=== PATIENT | female | born 1985 ===

== ENCOUNTER 2017-12-11 12:59 | Emergency (ER) | payer BC, MEDICAID ==
[2017-12-11 13:11] VITALS: TEMP 98.7
--- NOTE | 2017-12-11 14:28 | ED PDOC ---
HPI: Chest Pain Time Seen by Provider: 12/11/17 14:27 Chief Complaint (Nursing): Palpitations Chief Complaint (Provider): PALPITATIONS History Per: Patient (32 Y/O FEMALE HERE WITH PALPITATIONS INTERMITTENT TODAY LASTING SHORT WHILE. DENIES ANY CHEST PAIN OR SOB WITH SYMPTOMS. IS NOT ON OCP. DOES NOT SMOKE. NO PRIOR MEDICAL HX. ) Against Medical Advice - AMA Patient Left Against Medical Advice: The patient declines admission to the hospital and wishes to leave the Emergency Department. This action is against my medical advice. This decision was made with informed refusal. The patient was told that admission to the hospital is necessary. Explanation of the reasons why were discussed. The risks of leaving were explained to the patient and include, but are not limited to, worsening of known or currently unknown conditions, permanent disability and from undiagnosed or untreated conditions. The patient has the capacity to make this informed decision and understands my explanation of the current medical problem and risks of leaving. The patient voluntarily accepts these risks and signed an AMA form documenting our conversation. The patient was given the opportunity to ask questions and reconsider. The patient was encouraged to return to the Emergency Department at any time for further care. Past Medical History Reviewed: Historical Data, Nursing Documentation, Vital Signs Vital Signs: Last Vital Signs Temp 98.7 F 12/11/17 13:09 Pulse 92 H 12/11/17 13:09 Resp 16 12/11/17 13:09 BP 130/85 12/11/17 13:09 Pulse Ox 100 12/11/17 14:28 - Medical History PMH: Anxiety - Surgical History Surgical History: Appendectomy, Tonsillectomy, - Family History Family History: States: Diabetes (Mother and father) - Allergies Allergies/Adverse Reactions: Allergies Allergy/AdvReac Type Severity Reaction Status Date / Time No Known Allergies Allergy Verified 12/11/17 13:09 Review of Systems ROS Statement: Except As Marked, All Systems Reviewed And Found Negative Cardiovascular: Positive for: Palpitations Physical Exam - Reviewed Nursing Documentation Reviewed: Yes Vital Signs Reviewed: Yes - Physical Exam Appears: Positive for: Well, Non-toxic, No Acute Distress Head Exam: Positive for: ATRAUMATIC, NORMAL INSPECTION, NORMOCEPHALIC Skin: Positive for: Normal Color, Warm, DRY Eye Exam: Positive for: EOMI, Normal appearance, PERRL ENT: Positive for: Normal ENT Inspection Neck: Positive for: Normal, Painless ROM Cardiovascular/Chest: Positive for: Regular Rate, Rhythm Respiratory: Positive for: CNT, Normal Breath Sounds Gastrointestinal/Abdominal: Positive for: Normal Exam, Soft Back: Positive for: Normal Inspection Extremity: Positive for: Normal ROM Neurologic/Psych: Positive for: Alert, Oriented - Laboratory Results Result Diagrams: 12/11/17 14:00 12/11/17 14:00 - ECG O2 Sat by Pulse Oximetry: 100 - Progress ED Course And Treament: Patient advised CTA of chest. Does not want CT of chest . Disposition - Clinical Impression Clinical Impression: Palpitations - Patient ED Disposition Is Patient to be Admitted: No - Disposition Disposition: Against Medical Advice Disposition Time: 18:07 Condition: FAIR Forms: [employer] (S[place]i)
[2017-12-11 14:35] LABS: BASO # 0.1 K/uL (0.0-0.2); BASO % 1.2 % (0.0-2.0); EOS # 0.3 K/uL (0.0-0.7); HEMOGLOBIN 12.3 g/dL (12.0-16.0); LYMPH # 0.9 K/uL (1.0-4.3); LYMPH % 14.6 % (20.0-40.0); MEAN CELL VOLUME 84.6 fl (81.0-99.0); MEAN CORPUSCULAR HEMOGLOBIN 28.6 pg (27.0-31.0); MEAN CORPUSCULAR HGB CONC 33.8 g/dL (33.0-37.0); MEAN PLATELET VOLUME 7.4 fl (7.2-11.7); MONO # 0.6 K/uL (0.0-0.8); MONO % 9.3 % (0.0-10.0); NEUT # 4.3 K/uL (1.8-7.0); NEUT % 69.9 % (50.0-75.0); NRBC % 0.1 % (0.0-0.0); RBC 4.28 Mil/uL (3.80-5.20); RED CELL DISTRIBUTION WIDTH 12.9 % (11.5-14.5); WHITE BLOOD COUNT 6.2 K/uL (4.8-10.8)
[2017-12-11 14:39] LABS: ALB/GLOB RATIO 0.9 (1.0-2.1); ALBUMIN 4.3 g/dL (3.5-5.0); ALT/SGPT 71 U/L (9-52); AST/SGOT 49 U/L (14-36); BLOOD UREA NITROGEN 13 mg/dl (7-17); CALCIUM 9.3 mg/dL (8.4-10.2); GFR AFRICAN-AMERICAN > 60; GFR NON-AFRICAN AMERICAN > 60
[2017-12-11] MEDS ORDERED: Sodium Chloride 0.9% 1,000 ML IV STA (15:52)
[2017-12-11] MEDS ORDERED: Sodium Chloride 0.9% 0 ML ONE (17:36)
[2017-12-11] MEDS ORDERED: Iodixanol 320 MG/ML 100 ML BOTTLE IV ONE (17:36)
[2017-12-11 18:42] VITALS: BP 132/70; PULSE 78; RESP 19; O2SAT 99
--- NOTE | 2017-12-12 08:50 | CARD ---
APPROVED REPORT EKG Measurement Heart [id number] MS [id number] <Conclusion> Normal sinus rhythm Normal ECG
== END 2017-12-11 18:10 | disposition home or self-care (01) ==
LOC: H.ER 12:59
DX: R00.2 Palpitations (principal); F41.9 Anxiety disorder, unspecified
CPT/HCPCS: 80053; 81025; 83735; 84443; 85025; 85378; 93005; 99282; J7040

== ENCOUNTER 2019-01-23 10:01 | Emergency (ER) | payer OTHER, BC ==
[2019-01-23 10:04] VITALS: BMI 29.6
[2019-01-23 10:05] VITALS: BP 135/84; PULSE 80; RESP 17; TEMP 98.9
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
[2019-01-25 21:14] VITALS: O2SAT 99
== END 2019-01-23 11:28 | disposition home or self-care (01) ==
LOC: H.ER 10:01
DX: M54.2 Cervicalgia (principal); V43.52XA Car driver injured in collision with other type car in traffic accident, initial encounter